=== PATIENT | male | born 1985 | race Two or more races ===

== ENCOUNTER 2022-11-04 11:39 | Emergency (ER) | payer OTHER ==
[~2022-11-04] VITALS: Ht 167.6 cm; Wt 81.6 kg
[2022-11-04 11:52] VITALS: BP 100/63; TEMP 97.7; O2SAT 99
[2022-11-04] MEDS ORDERED: CLINDAMYCIN HCL 150 MG CAPSULE ONE (12:25)
[2022-11-04] MEDS ORDERED: CLINDAMYCIN HCL 150 MG CAPSULE PO ONE (12:30)
[2022-11-04] MEDS ORDERED: CLIN300C12 PO (12:31)
--- NOTE | 2022-11-04 13:02 | NUR ---
Patient discharged to home in stable condition. Written and verbal after care instructions given. Patient verbalizes understanding of instruction.
== END 2022-11-04 13:02 | disposition home or self-care (01) ==
LOC: ER 11:45
DX: L03.116 Cellulitis of left lower limb (principal); Z88.0 Allergy status to penicillin; Z88.1 Allergy status to other antibiotic agents